=== PATIENT | female | born 1985 | race Caucasian/White ===

== ENCOUNTER 2017-03-17 01:37 | Emergency (ER) | payer MEDICAID, OTHER ==
[2017-03-17 01:37] VITALS: BMI 35.6
--- NOTE | 2017-03-17 01:57 | C.PDOC ---
History Of Present Illness 31 year old female who presents to the ER with a complaint of nonradiating epigastric pain that began today, associated with multiple episodes of bilious vomiting and diarrhea. Denies fever or chills. Time Seen by Provider: 03/17/17 01:56 Chief Complaint (Nursing): Abdominal Pain History Per: Patient History/Exam Limitations: no limitations Onset/Duration Of Symptoms: Hrs Current Symptoms Are (Timing): Still Present Location Of Pain/Discomfort: Epigastric Radiation Of Pain To:: None Quality Of Discomfort: Unable To Describe Associated Symptoms: Vomiting, Diarrhea. denies: Fever, Chills Exacerbating Factors: None Alleviating Factors: None Recent travel outside of the [place]: No Abnormal Vaginal Bleeding: No Past Medical History Reviewed: Historical Data, Nursing Documentation, Vital Signs Vital Signs: Last Vital Signs Temp 98.8 F 03/17/17 03:23 Pulse 74 03/17/17 03:23 Resp 18 03/17/17 03:23 BP 99/62 L 03/17/17 03:23 Pulse Ox 100 03/17/17 03:23 - Medical History PMH: No Chronic Diseases Surgical History: No Surg Hx - [facility] MONITORING NOS (01/15/15) Family History: States: Unknown Family Hx - Social History Hx Tobacco Use: No Hx Alcohol Use: No Hx Substance Use: No - Immunization History Hx Tetanus Toxoid Vaccination: No Hx Influenza Vaccination: No Hx Pneumococcal Vaccination: No Review Of Systems Constitutional: Negative for: Fever, Chills Cardiovascular: Negative for: Chest Pain Gastrointestinal: Positive for: Vomiting, Abdominal Pain, Diarrhea Genitourinary: Negative for: Dysuria, Hematuria Physical Exam - Physical Exam Appears: Non-toxic Skin: Warm, Dry, Other (Cool to touch) Head: Atraumatic, Normacephalic Eye(s): bilateral: Normal Inspection (Anicteric), PERRL, EOMI Oral Mucosa: Moist Neck: Normal, Supple Chest: Symmetrical Cardiovascular: Rhythm Regular Respiratory: Normal Breath Sounds, No Rales, No Rhonchi, No Wheezing Gastrointestinal/Abdominal: Soft, Tenderness (Epigastric), No Guarding, No Rebound, No Other (Faulkner's sign) Pulses: Left Radial: Normal, Right Radial: Normal, Left Dorsalis Pedis: Normal, Right Dorsalis Pedis: Normal Neurological/Psych: Oriented x3, Normal Speech, Normal Cognition ED Course And Treatment - Laboratory Results Result Diagrams: 03/17/17 02:19 03/17/17 02:19 O2 Sat by Pulse Oximetry: 100 (Room air) Pulse Ox Interpretation: Normal Medical Decision Making Medical Decision Making: Plan: * Urinalysis * Blood work * * Viscous lidocaine * Lomotil * Maalox * Zofran * IV fluids Disposition - Disposition Referrals: [facility] [Outside] Disposition: HOME/ ROUTINE Disposition Time: 03:19 Condition: GOOD Additional Instructions: bananas,rice,soups applesauce for next 24 hrs.Avoid dairy and meat.Take lomotical as needed for diarrhea Prescriptions: Atropine/Diphenoxylate [Lonox 0.025 MG-2.5 MG] 1 tab PO Q4 #14 tab Ondansetron ODT [Zofran ODT] 4 mg PO Q6 PRN #6 odt PRN Reason: Nausea/Vomiting Forms: [facility] (Maldivian), Work Excuse Print Language: GEORGIAN - Clinical Impression Clinical Impression: Gastroenteritis - Scribe Statement The provider has reviewed the documentation as recorded by the Scribezekiel Guevara All medical record entries made by the Scribe were at my direction and personally dictated by me. I have reviewed the chart and agree that the record accurately reflects my personal performance of the history, physical exam, medical decision making, and the department course for this patient. I have also personally directed, reviewed, and agree with the discharge instructions and disposition.
[2017-03-17] MEDS ORDERED: Sodium Chloride 0.9% 1,000 ML IV ONE (02:04)
[2017-03-17] MEDS ORDERED: Belladonna-Phenobarbital PO STA (02:04)
[2017-03-17] MEDS ORDERED: Aluminum Hydroxide/Magnesium Hydroxide Susp (30 mL) PO STA (02:04)
[2017-03-17 02:07] VITALS: O2SAT 100
[2017-03-17 02:07] LABS: RBC URINE 1 /hpf (0-3); URINE BACTERIA FEW (<OCC); URINE BILIRUBIN NEGATIVE (NEGATIVE); URINE BLOOD NEGATIVE (NEGATIVE); URINE COLOR Yellow (YELLOW); URINE GLUCOSE (UA) NORMAL (Normal); URINE KETONE NEGATIVE (NEGATIVE); URINE LEUKOCYTE ESTERASE NEG Leu/uL (Negative); URINE PROTEIN 1+ mg/dL (NEGATIVE); URINE UROBILINOGEN NORMAL mg/dL (0.2-1.0); WBC URINE 1 /hpf (0-5)
[2017-03-17] MEDS ORDERED: Belladonna-Phenobarbital ONE (02:18)
[2017-03-17] MEDS ORDERED: Sodium Chloride 0.9% 1,000 ML ONE (02:18)
[2017-03-17] MEDS ORDERED: Aluminum Hydroxide/Magnesium Hydroxide Susp (30 mL) ONE (02:18)
[2017-03-17 02:26] LABS: BASO # 0.1 K/uL (0.0-0.2); BASO % 1.3 % (0.0-2.0); EOS # 0.4 K/uL (0.0-0.7); EOS % 4.5 % (0.0-4.0); HEMATOCRIT 39.2 % (34.0-47.0); LYMPH # 1.3 K/uL (1.0-4.3); MEAN CELL VOLUME 74.5 fL (81.0-99.0); MEAN CORPUSCULAR HEMOGLOBIN 23.5 pg (27.0-31.0); MEAN CORPUSCULAR HGB CONC 31.5 g/dL (33.0-37.0); MEAN PLATELET VOLUME 7.7 fL (7.2-11.7); MONO # 0.6 K/uL (0.0-0.8); MONO % 6.2 % (0.0-10.0)
[2017-03-17 02:28] LABS: CHLORIDE 102 mmol/L (98-107); SODIUM 135 mmol/L (132-148)
[2017-03-17 02:30] LABS: GFR AFRICAN-AMERICAN > 60
[2017-03-17 02:31] LABS: ALB/GLOB RATIO 1.1 (1.0-2.1); ALKALINE PHOSPHATASE 63 U/L (38-126); ALT/SGPT 26 U/L (9-52); AST/SGOT 21 U/L (14-36); BILIRUBIN,TOTAL 0.6 mg/dL (0.2-1.3); BLOOD UREA NITROGEN 11 mg/dL (7-17); CALCIUM 9.8 mg/dl (8.6-10.4); CARBON DIOXIDE 19 mmol/L (22-30); GLUCOSE,RANDOM 93 mg/dL (65-105); TOTAL PROTEIN 8.9 g/dL (6.3-8.3)
[2017-03-17] MEDS ORDERED: Atropine-Diphenoxylate 0.025-2.5 mg Tab PO STA (02:50)
[2017-03-17] MEDS ORDERED: Atropine-Diphenoxylate 0.025-2.5 mg Tab ONE (02:55)
[2017-03-17 03:31] VITALS: BP 99/62; PULSE 74; RESP 18; TEMP 98.8
== END 2017-03-17 03:31 | disposition home or self-care (01) ==
LOC: C.ER 01:37
DX: K52.9 Noninfective gastroenteritis and colitis, unspecified (principal)
CPT/HCPCS: 80053; 81001; 83690; 84703; 85025; 96361; 96374; 99284; J2405; J7040